=== PATIENT | male | born 1985 | race Caucasian/White ===

== ENCOUNTER 2017-01-19 10:04 | Emergency (ER) | payer SELFPAY ==
[2017-01-19] MEDS ORDERED: Sodium Chloride 0.9% 1,000 ML PRIMARY IV ONE (10:18)
[2017-01-19] MEDS ORDERED: NORMAL SALINE 10 ML SYRINGE FLUSH IVP PRN (10:18)
[2017-01-19] MEDS ORDERED: KETOROLAC 30 MG/1 ML VIAL IVP ONE (10:18)
[2017-01-19] MEDS ORDERED: ONDANSETRON 4 MG/2 ML VIAL IVP ONE (10:18)
[2017-01-19 10:20] VITALS: RESP 20; TEMP 97.7
--- NOTE | 2017-01-19 10:30 | PDOC ---
Nausea/Vomiting/Diarrhea HPI - General Chief Complaint: Nausea / Vomiting / Diarrhea Stated Complaint: ABD PAIN, N/V Date Seen by Provider: 01/19/17 Time Seen by Provider: 10:27 Source: POSITIVE: Patient Nurse's Notes Reviewed & Considered: Yes - History of Present Illness Initial Comments: Reggie is a 31-year-old male who presents to the emergency department with nausea, vomiting, diarrhea. Patient reports his symptoms started at 3 this morning. He has vomited over 8 times. Initially had been vomiting food material now it is more clear. Patient also reports she's had over 5-6 episodes of diarrhea. No recent antibiotics or travel. There's been no blood in his diarrhea. He does have abdominal pain. Diffuse. No specific exacerbating or relieving factors. Mild to moderate in overall severity. It feels crampy. Patient denies any sick contacts. No fevers or chills. - Patient Home Medications Home Medications: Home Medications Ondansetron Odt [Zofran ODT] 4 mg PO Q8H PRN #12 tab.rapdis 01/19/17 - Patient Allergies Allergies/Adverse Reactions: Allergies Allergy/AdvReac Type Severity Reaction Status Date / Time No Known Allergies Allergy Unverified 01/19/17 10:14 Past Medical History - heen HEENT History: Denies History Cardiovascular History: Denies History Respiratory History: Denies History Gastrointestinal History: Denies History Genitourinary History: Denies History Endocrine History: Denies History Musculoskeletal History: Denies History Neurological History: Denies History Blood Disorders: Denies History Psychiatric History: Denies History History of Sexually Transmitted Diseases: No Male Reproductive History: Denies History Cancer History: Denies History In Past Year Been Physically Harmed or Verbally Threatened: No History of MDRO: No Type of MDRO: C-Diff History of Other Communicable Diseases: No Tobacco Use: Current Every Day Smoker Alcohol Use: None Substance Use Type: None Previous Surgical History: Yes Type / Date of Surgery: RIGHT HAND Significant Family History: No pertinent family hx Past Medical History Reviewed: Reviewed - No Changes ROS - Limitations ROS Limitations: No Limitations Constitution: DENIES: Chills, Fever Cardiovascular: REPORTS: Denies Cardiac Symptoms Respiratory: REPORTS: Denies Resp Symptoms Neurological: REPORTS: Denies Neuro Symptoms Gastrointestinal: REPORTS: Abdominal Pain, Nausea, Vomitting, Diarrhea. DENIES : Bloody Stools Endocrine: REPORTS: Denies Symptoms Musculoskeletal: REPORTS: Denies MS Symptoms Genitourinary: REPORTS: Denies Symptoms Eyes: REPORTS: Denies Symptoms ENT: REPORTS: Denies Symptoms Skin: REPORTS: Denies Skin Symptoms Nausea/Vomiting/Diarrhea Exam - General Appearance General Appearance: POSITIVE: Alert, Cooperative, No Acute Distress, No Evidence of Trauma - HEENT HEENT: POSITIVE: Head Inspection Nml, Other (Dried mucous membrane) - Neck Neck: POSITIVE: Supple - Respiratory Respiratory: POSITIVE: No Respiratory Distress - Cardiovascular Cardiovascular: POSITIVE: Heart Sounds Normal, Tachycardia - Abdomen Abdomen: Soft: (All Quadrants), Normal Bowel Sounds: (All Quadrants), No Splenomegaly: (All Quadrants), No Hepatomegaly: (All Quadrants) Additional Abdominal Details: Minimal diffuse discomfort to deep palpation. - Skin Skin: POSITIVE: Intact, Normal For Race, Warm, Dry - Extremities Extremity: Non-Tender: (All Extremities), Normal ROM: (All Extremities), Normal Inspection: (All Extremities) - Neurological / Psychological Neurological: POSITIVE: Affect Apporpriate N/V/D Progress - Results Reviewed by me Lab Results:: Laboratory Results 01/19/17 Range/Units 10:24 WBC 18.78 H (4.8-10.8) 10^3/uL RBC 5.78 (4.70-6.10) 10^6/uL Hgb 17.5 (14.0-18.0) g/dL Hct 52.1 H (42.0-52.0) % MCV 90.1 H (80-90) FL MCH 30.3 (27-31) PG MCHC 33.6 (33-37) g/dL RDW Std Deviation 46.0 (39-50) fL RDW Coeff of Nae 14.0 (11.5-14.5) % Plt Count 419 H (140-350) 10*3/uL MPV 9.6 (7.4-12.2) FL Immature Gran % (Auto) 0.4 (0-5) % Neut % (Auto) 90.3 H (50-80) % Lymph % (Auto) 3.8 L (10-50) % Upson % (Auto) 3.6 L (5-15) % Eos % (Auto) 1.7 (0-8) % Baso % (Auto) 0.2 (0-1) % Immature Gran # (Auto) 0.08 10*3/UL Neut # (Auto) 16.97 10*3/UL Lymph # (Auto) 0.71 10*3/uL Upson # (Auto) 0.67 (0.3-0.8) 10*3/UL Eos # (Auto) 0.32 10*3/UL Baso # (Auto) 0.03 10*3/UL WBC Morphology Comment Normal morphology (NORM) Plt Morphology Comment Normal morphology (NORM) RBC Morph Comment Normal morphology (NORM) Sodium 141 (135-145) meq/L Potassium 5.3 H (3.8-5.2) meq/L Chloride 102 (98-112) meq/L Carbon Dioxide 22 L (23-33) meq/L Anion Gap 17 (5-20) BUN 19 (7-22) mg/dL Creatinine 1.0 (0.70-1.50) mg/dL Estimated GFR > 60 (>60 ml/min/1.73m(2)) BUN/Creatinine Ratio 19.00 (6-20) Glucose 138 H (78-110) mg/dL Calculated Osmolality 295.0 H (267-292) mOsm/kg Calcium 10.2 (8.7-10.7) mg/dL - Patient's Progress MDM / ED Course: Reggie is a 31-year-old male who presents to the emergency department for evaluation of nausea, vomiting, diarrhea. His vital signs are notable for slight tachycardia and examination demonstrates overall well-appearing male with mild dehydration. Patient signs and symptoms are consistent with most likely viral gastroenteritis. He was treated here with Zofran, Toradol, bolus of normal saline. On reevaluation patient was feeling better. Patient's CBC was notable for a leukocytosis. Chemistry panel was largely unremarkable. Patient has no risk factors for serious enteric organisms such as travel or antibiotic use. Suspect that this most likely will be a self-limiting process. Patient was prescribed Zofran to help with his nausea encouraged oral hydration and instructed to return to the emergency department for any change or worsening symptoms. Patient also instructed to return if not improving in 24 -48 hours. Patient Care Time - Estimated PCT Patient Care Time (In Minutes): 30 Vital Signs - Recent Vital Signs Vital Signs: Vital Signs (Last 8 hours) Temp Pulse Resp BP Pulse Ox 01/19/17 10:16 97.7 F 114 H 20 125/99 100 - VS Reviewed Vital Signs Reviewed: Yes Discharge Clinical Impression: Gastroenteritis Discharge Disposition: Discharged to Home Condition: Good Prescriptions / Orders: Ondansetron Odt [Zofran ODT] 4 mg PO Q8H PRN #12 tab.rapdis PRN Reason: Nausea Patient Instructions Given at Discharge: Gastroenteritis (ED), Dehydration (ED) Additional Instructions: Thank you for coming to the emergency department. It appears that you have a viral gastroenteritis. Symptoms usually last 24-72 hours. Please use nausea medication as needed. Make sure that you drink fluids at home to maintain her hydration status. If your symptoms are worsening or not improving in 72 hours please return to the emergency department for reevaluation.
[2017-01-19 10:31] LABS: BASOPHILS # (AUTO) 0.03 10*3/UL; BASOPHILS % (AUTO) 0.2 % (0-1); EOSINOPHILS # (AUTO) 0.32 10*3/UL; EOSINOPHILS % (AUTO) 1.7 % (0-8); HEMATOCRIT 52.1 % (42.0-52.0); HEMOGLOBIN 17.5 g/dL (14.0-18.0); LYMPHOCYTES # (AUTO) 0.71 10*3/uL; MEAN CORPUSCULAR HEMOGLOBIN 30.3 PG (27-31); MEAN CORPUSCULAR HGB CONC 33.6 g/dL (33-37); MEAN CORPUSCULAR VOLUME 90.1 FL (80-90); MEAN PLATELET VOLUME 9.6 FL (7.4-12.2); MONOCYTES # (AUTO) 0.67 10*3/UL (0.3-0.8); MONOCYTES % (AUTO) 3.6 % (5-15); NEUTROPHILS # (AUTO) 16.97 10*3/UL; NEUTROPHILS % (AUTO) 90.3 % (50-80); RED BLOOD COUNT 5.78 10^6/uL (4.70-6.10)
[2017-01-19 11:00] LABS: BLOOD UREA NITROGEN 19 mg/dL (7-22); CALCIUM 10.2 mg/dL (8.7-10.7); EST GLOMERULAR FILTRATION > 60 (>60 ml/min/1.73m(2))
[2017-01-19 11:05] LABS: PLATELET MORPHOLOGY COMMENT NORMAL MORPHOLOGY (NORM); RBC MORPHOLOGY COMMENT NORMAL MORPHOLOGY (NORM); WBC MORPHOLOGY COMMENT NORMAL MORPHOLOGY (NORM)
== END 2017-01-19 11:32 | disposition home or self-care (01) ==
LOC: ER 10:04
DX: K52.9 Noninfective gastroenteritis and colitis, unspecified (principal); R19.7 Diarrhea, unspecified; R10.84 Generalized abdominal pain; R11.2 Nausea with vomiting, unspecified
CPT/HCPCS: 80048; 85025; 96361; 96374; 96375; 99282; 99283; J1885; J2405; J7030